=== PATIENT | male | born 1945 | race Caucasian/White ===

== ENCOUNTER → 2018-08-30 14:18 | Outpatient (CLI) | payer MEDICARE, SELFPAY ==
[2018-08-30 14:28] LABS: Pathologist Comment May follow
[2018-08-30 16:23] LABS: RBC /Synovial Fluid 1.005 10^6/uL (0); Synovial Fld Mononuclear WBC % 47.1 %; Synovial Fld Polynuclear WBC # 1.491 10^3/ul; Synovial Fld Polynuclear WBC % 52.9 %
[2018-08-30 18:01] LABS: Lymph 16 %; Monocyte /Synovial Fluid 10 %; Neutrophil 57 % (0-25); Other Cell /Synovial Fluid 17 %
[2018-08-30 18:02] LABS: AUTO B FLUID DILUENT BKGD CT WBC <0.1 RBC <0.01 (W<.1,R<.01); Appearance /Synovial Fluid Turbid (CLEAR); Color / Synovial Fluid Bloody (Pale Yellow); Source / Synovial Fluid LEFT KNEE; Source- Body Fluid SYNOVIAL; Synovial Fld Mononuclear WBC # 1.329 10^3/ul
[2018-08-30 18:04] LABS: Body Fluid QC Type(s) BF2Q,BF3Q
[2018-08-31 13:58] LABS: Pathologist Review Reviewed
== END ==
PROVIDERS: Family Provider Family Medicine; PCP Family Medicine; Referring Provider Physician Assistant; Visit Provider Physician Assistant
DX: M25.462 Effusion, left knee (principal); Z96.652 Presence of left artificial knee joint
CPT/HCPCS: 87070; 87075; 87205; 89050; 89051; 89060